=== PATIENT | male | born 1970 | race African-American/Black ===

== ENCOUNTER 2023-12-14 06:25 | Day surgery (SDC) | payer OTHER, SELFPAY ==
[2023-11-30 07:01] VITALS: BMI 31.0
[2023-11-30 09:04] LABS: Hematocrit 51.1 % (39.0-52.0); Hemoglobin 16.9 g/dL (13.0-18.0); Mean Corp Hgb Conc. 33.1 g/dL (33.0-37.0); Mean Corpuscular Hgb 27.7 pg (27.0-31.0); Mean Corpuscular Volume 83.6 fL (80.0-94.0); Mean Platelet Volume 11.2 fL (7.4-10.4); Platelet Count 156 10^3/uL (130-400); Red Blood Cell Count 6.11 10^6/uL (4.70-6.10); Red Cell Dist. Width 14.3 % (11.5-14.5); White Blood Cell Count 3.6 10^3/uL (4.8-10.8)
[2023-11-30 09:09] LABS: Urine Albumin Negative (Neg - Trace); Urine Bilirubin Negative (Negative); Urine Character Clear (Clear); Urine Color Yellow; Urine Glucose Negative (Negative); Urine Ketone Negative (Negative); Urine Leukocyte Negative (Negative); Urine Nitrite Negative (Negative); Urine Occult Blood Negative (Negative); Urine Urobilinogen Negative (Neg - 1+)
[2023-11-30 09:14] LABS: Blood Urea Nitrogen 25 mg/dl (9-20); Carbon Dioxide 28 mmol/L (22-30); Chloride 104 mmol/L (98-107); Estimated Creatinine Clearance 71 ml/min; Glucose 113 mg/dl (70-99); Potassium 4.5 mmol/L (3.5-5.1); Sodium 137 mmol/L (135-145); eGFR > 60.00
[2023-11-30 09:15] LABS: INR 1.04; PT 13.4 Sec (11.4-14.6)
[2023-11-30 09:16] LABS: APTT 36.6 Sec (23.4-35.0)
[2023-12-14] VITALS (7 sets, daily range): BP systolic 126–145; BP diastolic 86–97
[2023-12-14] MEDS: NORMOSOL-R 1000 IV (10:28)
--- NOTE | 2024-01-09 15:53 | HP.FOC2 ---
Focused History & Physical
Chief Complaint
HPI:
Chief Complaint: Paratesticular tumor
HPI / Indication for Planned Procedure: 53M with persistent R paratesticular mass s/p serial exam and ultrasound
Relevant Past Medical History: Negative
Relevant Social History: Negative
Relevant Family History: Negative
Relevant Past Surgical History: Negative
Review of Systems
Review of Pertinent Systems: All Systems Negative
Medication
See Medication form for detailed medications: No
Medication List (including Herbals & OTC):
Fadogia Agrestis Supplement 1 cap PO BID Supplement 12/15/23
Brentonkat Ali Supplement 1 cap PO BID Supplement 12/15/23
acetaminophen 325 mg tablet (Tylenol) 650 mg PO ONCE PRN mild pain 12/15/23
ibuprofen 200 mg tablet (Advil) 400 mg PO ONCE PRN mild pain 12/15/23
sulfamethoxazole 800 mg-trimethoprim 160 mg tablet (Bactrim DS) 1 tab PO BID 7 days #14 tabs 12/16/23
Medications Reviewed: Yes
Allergies and Reactions
Patient has Allergies: No
Noted Allergies and Reactions:
Allergy/AdvReac Type Severity Reaction Status Date / Time
No Known Allergies Allergy Verified 12/15/23 01:42
Pertinent Physical Exam
All Other Systems: Negative
Head/Neck: Normal
Lungs: Normal
Heart: Normal
Abdomen: Normal
Extremities: Normal
Neurological: Normal
Diagnosis / Assessment
53M with small R paratesticular tumor
- OR for inguinal exploration, biopsy of paratesticular mass
Plan / Procedure
- OR for inguinal exploration, biopsy of paratesticular mass
Anesthesia/Sedation to be done by Anesthesia Provider: Yes
== END 2023-12-14 16:15 | disposition home or self-care (01) ==
LOC: SDS 06:25
PROVIDERS: ATTENDING PHYSICIAN Urology
DX: N50.89 Other specified disorders of the male genital organs (principal)
CPT/HCPCS: 54512; 88304; 88332; 36415; 80048; 81003; 85027; 85610; 85730; 88331; 93005

== ENCOUNTER 2023-12-15 06:02 | Day surgery (SDC) | payer OTHER, SELFPAY ==
[2023-12-15] VITALS (28 sets, daily range): BP systolic 100–157; BP diastolic 61–108; BMI 31.4
--- NOTE | 2023-12-15 02:23 | ED.GENMED ---
History of Present Illness
<KAYLAH Crystal - Last Filed: 12/15/23 02:39>
General
Chief Complaint: Post Operative Problem(s)
Source: patient
Exam Limitations: none
Time Seen by Provider: 12/15/23 02:06
Nursing documentation reviewed up to this point in time: agreed with
Travel History
Have you had any contact with someone who has COVID-19?: No
Do you have any symptoms of coronavirus? Fever > 100 degrees, chills, cough, shortness of breath, sore throat, loss of taste or smell, muscle aches, or headache?: No
History of Present Illness
History of Present Illness:
53 y/o M presents to ED post excision of right paratesticular tumor with R inguinal exploration complaining of testicular/penile swelling and right sided testicular pain. Patient had surgery at 1300 yesterday. Patient reports swelling began
immediately the surgery. He says he has not looked at where the swelling started as he was wearing a jock strap post surgery. However, he states he could 'feel it swelling up'. Patient states he also has had constant right sided pain that started 1
hour ago. He states the pain is 7/10 currently. He denies dysuria, drainage or bleeding.
If applicable-neuro sx onset
Onset of symptoms known: Yes
Date of onset of symptoms: 12/14/23
Time of onset of symptoms: 13:00
Review of Systems
<KAYLAH Crystal - Last Filed: 12/15/23 02:39>
Review of Systems
Allergies reviewed?: Yes
All Other Systems: ROS reviewed and negative except as documented in HPI and ROS
Constitutional: Reports no symptoms
EENT: Reports no symptoms
Respiratory: Reports no symptoms
Cardiac: Reports no symptoms
ABD/GI: Reports no symptoms
: Reports other (testicular swelling/penile swelling)
Musculoskeletal: Reports no symptoms
Skin: Reports no symptoms
Neurological: Reports no symptoms
Endocrine: Reports no symptoms
Hematologic/Lymphatic: Reports no symptoms
Psychiatric: Reports no symptoms
Phy Exam
<KAYLAH Crystal - Last Filed: 12/15/23 02:39>
General Physical Exam
General Presentation: well appearing and mild distress
General age: appears stated age
General Skin: warm and dry
General Habitus: normal
General Mental: alert
General Hydration: appears well hydrated
Cardiovascular Exam
Cardiovascular Exam: regular rate/rhythm, no edema, no gallop, no murmur and normal peripheral pulses
Pulmonary Exam
Pulmonary Exam: lungs clear, no respiratory distress, no rales, no crackles and no rhonchi
Neurological Exam
Neurological Exam: alert and oriented x3
Skin Exam
Skin Exam: normal color, warm/dry and no rash
Psychiatric Exam
Psychiatric Exam: normal mood/affect
Course
<KAYLAH Crystal - Last Filed: 12/15/23 02:39>
Orders/Labs/Results
Orders:
Orders
12/15/23 02:05
US Scrotum Urgent
Comment:
Reason For Exam: post operative swelling
12/15/23 02:52
Urinalysis Reflex To Culture Urgent
HYDROmorphone [Dilaudid] 0.5 mg IV NOW STA
Ondansetron Injectable [Zofran] 4 mg IV NOW STA
12/15/23 02:59
Complete Blood Count/With Diff Urgent
Comprehensive Metabolic Panel Urgent
12/15/23 03:27
ECG [Electrocardiogram (*1)] Urgent
Reason for Study: Syncope
12/15/23 03:28
EKG- Treatment ONCE
Bedside Glucose Monitoring-ONCE As Directed
Abnormal Lab Results
12/15/23
02:59
MCV 79.2 L fL
(80.0-94.0)
Abs Immat Gran (auto) 0.1 H 10^3/uL
(0-0.05)
Absolute Neuts (auto) 6.7 H 10^3/uL
(1.4-6.5)
Absolute Lymphs (auto) 0.9 L 10^3/uL
(1.2-3.4)
Immature Gran % 0.6 H %
(0-0.5)
Neutrophils % 82.3 H %
(42.2-75.2)
Lymphocytes % 11.3 L %
(20.5-51.1)
Potassium 5.2 H mmol/L
(3.5-5.1)
BUN 32 H mg/dl
(9-20)
Glucose 201 H mg/dl
(70-99)
Alkaline Phosphatase 37 L U/L
(38-126)
12/15/23 02:59
12/15/23 02:59
Vital Signs
Initial and Last Documented VS:
Initial Vital Signs
Temp Pulse Resp BP Pulse Ox
99.6 F 138 24 157/95 100
12/15/23 01:43 12/15/23 01:43 12/15/23 01:43 12/15/23 01:43 12/15/23 01:43
Last Documented Vital Signs
Temp Pulse Resp BP Pulse Ox
99.6 F 66 17 112/68 95
12/15/23 01:43 12/15/23 03:33 12/15/23 03:33 12/15/23 03:36 12/15/23 03:36
Bandarlt;Timmy Wong, DO - Last Filed: 12/15/23 03:58>
Orders/Labs/Results
Orders:
Orders
12/15/23 02:05
US Scrotum Urgent
Comment:
Reason For Exam: post operative swelling
12/15/23 02:52
Urinalysis Reflex To Culture Urgent
HYDROmorphone [Dilaudid] 0.5 mg IV NOW STA
Ondansetron Injectable [Zofran] 4 mg IV NOW STA
12/15/23 02:59
Complete Blood Count/With Diff Urgent
Comprehensive Metabolic Panel Urgent
12/15/23 03:27
ECG [Electrocardiogram (*1)] Urgent
Reason for Study: Syncope
12/15/23 03:28
EKG- Treatment ONCE
Bedside Glucose Monitoring-ONCE As Directed
Abnormal Lab Results
12/15/23
02:59
MCV 79.2 L fL
(80.0-94.0)
Abs Immat Gran (auto) 0.1 H 10^3/uL
(0-0.05)
Absolute Neuts (auto) 6.7 H 10^3/uL
(1.4-6.5)
Absolute Lymphs (auto) 0.9 L 10^3/uL
(1.2-3.4)
Immature Gran % 0.6 H %
(0-0.5)
Neutrophils % 82.3 H %
(42.2-75.2)
Lymphocytes % 11.3 L %
(20.5-51.1)
Potassium 5.2 H mmol/L
(3.5-5.1)
BUN 32 H mg/dl
(9-20)
Glucose 201 H mg/dl
(70-99)
Alkaline Phosphatase 37 L U/L
(38-126)
12/15/23 02:59
12/15/23 02:59
Vital Signs
Initial and Last Documented VS:
Initial Vital Signs
Temp Pulse Resp BP Pulse Ox
99.6 F 138 24 157/95 100
12/15/23 01:43 12/15/23 01:43 12/15/23 01:43 12/15/23 01:43 12/15/23 01:43
Last Documented Vital Signs
Temp Pulse Resp BP Pulse Ox
99.6 F 66 17 112/68 95
12/15/23 01:43 12/15/23 03:33 12/15/23 03:33 12/15/23 03:36 12/15/23 03:36
<KAYLAH Crystal - Last Filed: 12/15/23 02:39>
MDM/Problems Addressed
Differential Diagnosis Includes:
Post operative swelling/pain
Testicular torsion
Epididymitis
Testicular hematoma post surgery
MDM/Problems Addressed:
53 y/o M presents to ED post right testicular mass excision complaining of right sided pain and testicular swelling post surgery. Patient symptoms may be due to post operative causes that can normally cause pain and swelling. Hematoma considered as
complication of surgery. Hematoma can cause pain, swelling and redness. Will order US to rule out testicular torsion or epididymitis. Patient does not have fevers or chills, no concerns for sepsis.
<KAYLAH Crystal - Last Filed: 12/15/23 02:39>
*Critical Care Note
Total Time (30-74mins, 75-104mins- exclusive of procedures): Not Applicable
ED Attending Note
<KAYLAH Crystal - Last Filed: 12/15/23 02:39>
-
Portions of this chart may have been created with voice recognition software.� Occasional wrong word or��sound alike� substitutions may have occurred due to the inherent limitations of voice recognition software.
<Timmy Wong DO - Last Filed: 12/15/23 03:58>
ED Attending Note
Patient seen and examined by attending physician: Yes
I performed the substantive portion of visit, reviewed & personally made and approve the management plan that is documented in note by myself or JIM.: Yes
ED Attending Note:
Pleasant 53-year-old male presents with testicular swelling that presented after neurologic surgery yesterday. Patient had right inguinal exploration with excision of right paratesticular tumor. Patient tolerated procedure well without any
immediate adverse effects but then noticed some swelling when he got home so he came into the emergency department. Reports some pain, denies any other symptoms. Patient was seen in conjunction with the PA student. I have reviewed and agree with
the history and treatment plan presented. On my independent physical exam, patient is awake, alert, and oriented x3, minimal acute distress. Scrotum is enlarged and taut.
Discharge Plan
Departure
Patient Disposition: Admit
Date of Disposition: 12/15/23
Time of Disposition: 03:57
Admit to: Telemetry
Presentation/result/management discussed w/ accepting MD/DO: Dr Barnett
Condition: Fair
Discharge Problem:
Scrotal hematoma
Instructions: Postoperative Pain (DC), Bleeding After Surgery
Prescriptions:
No Action
No Current Medications
0
Referrals:
Cosme Garnett PA-C [Family Provider] -
Interventions
Interventions:
*General Assessment Last Done: 12/15/23 01:43
*Neglect/Abuse Screening Last Done: 12/15/23 01:43
ED- Fall Risk Assessment Last Done: 12/15/23 01:43
*ED COVID-19 Vaccine History Last Done: 12/15/23 01:43
ED-Skin Assessment Last Done: 12/15/23 02:05
[2023-12-15] MEDS: DILAUDID 0.5 MG IV (02:59)
[2023-12-15] MEDS: ZOFRAN 4 MG IV (02:59)
[2023-12-15 03:24] LABS: % Basophils 0.1 % (0-2); % Immature Granulocytes 0.6 % (0-0.5); % Lymphocytes 11.3 % (20.5-51.1); % Monocytes 5.7 % (1.7-9.3); % Neutrophils 82.3 % (42.2-75.2); Absolute Immature Granulocytes 0.1 10^3/uL (0-0.05); Absolute Lymphocytes 0.9 10^3/uL (1.2-3.4); Absolute Monocytes 0.5 10^3/uL (0.1-0.6); Absolute Neutrophils 6.7 10^3/uL (1.4-6.5); Hematocrit 42.3 % (39.0-52.0); Hemoglobin 14.7 g/dL (13.0-18.0); Mean Corp Hgb Conc. 34.8 g/dL (33.0-37.0); Mean Corpuscular Hgb 27.5 pg (27.0-31.0); Mean Corpuscular Volume 79.2 fL (80.0-94.0); Mean Platelet Volume 9.9 fL (7.4-10.4); Nucleated Red Blood Cells % 0 % (-); Platelet Count 198 10^3/uL (130-400); Red Blood Cell Count 5.34 10^6/uL (4.70-6.10); Red Cell Dist. Width 13.9 % (11.5-14.5); White Blood Cell Count 8.1 10^3/uL (4.8-10.8)
[2023-12-15 03:41] LABS: ALT (SGPT) 25 U/L (0-50); AST (SGOT) 24 U/L (17-59); Albumin 3.5 g/dl (3.5-5.0); Alkaline Phosphatase 37 U/L (38-126); Blood Urea Nitrogen 32 mg/dl (9-20); Calcium 9.3 mg/dl (8.4-10.2); Carbon Dioxide 27 mmol/L (22-30); Chloride 100 mmol/L (98-107); Estimated Creatinine Clearance 86 ml/min; Glucose 201 mg/dl (70-99); Potassium 5.2 mmol/L (3.5-5.1); Sodium 135 mmol/L (135-145); Total Bilirubin 0.5 mg/dl (0.2-1.3); Total Protein 6.5 g/dl (6.3-8.2); eGFR > 60.00
[2023-12-15 05:30] LABS: Urine Albumin Negative (Neg - Trace); Urine Bilirubin Negative (Negative); Urine Character Clear (Clear); Urine Color Yellow; Urine Glucose 3+ (Negative); Urine Ketone Trace (Negative); Urine Leukocyte Negative (Negative); Urine Nitrite Negative (Negative); Urine Occult Blood Negative (Negative); Urine Urobilinogen Negative (Neg - 1+)
--- NOTE | 2023-12-15 05:40 | HPS.HSE ---
Family Physician
-
Family Physician: Cosme Garnett
Chief Complaint
-
Testicular swelling
History of Present Illness
This is a very pleasant 53 year old male who underwent excision of a paratesticular tumor with inguinal exploration and biopsy yesterday. He came in to ED due to increasing swelling and pain. No associated symptoms including bleeding, urinary
discharge or drainage. During my interview he appeared hesitant answering questions but he had received a dose of IV dilaudid and also Zofran IV for nausea..He denied pain to me.
Medical History
Past Medical History
Past Medical History: Reports Other (L thumb carpometacarpal joint arthritis, elevated PSA levels)
Past Surgical History: Reports Urological (excision and biopsy of right testicular mass with inguinal exploration 12/14/23)
Social History
Tobacco: Non-smoker
Alcohol: Occasional
Drug: None
Personal: Single
Employment: Employed
Family History
Family History: Cancer (father)
Allergies / Home Medications
Allergies reflects when Allergies were last updated in [employer].
Home Medications with original date entered in [employer]
Allergy/Medication List:
Allergies
Allergy/AdvReac Type Severity Reaction Status Date / Time
No Known Allergies Allergy Verified 12/15/23 01:42
Home Medications
No Meds [No Current Medications] 12/15/23
Review of Systems
-
Constitutional: Reports No Symptoms
EENT: Reports No Symptoms
Respiratory: Reports No Symptoms
Cardiac: Reports No Symptoms
Abdomen/GI: Reports No Symptoms
: Reports Other (testicular pain)
Musculoskeletal: Reports No Symptoms
Skin: Reports No Symptoms
Neurological: Reports No Symptoms
Endocrine: Reports No Symptoms
Hematologic/Lymphatic: Reports No Symptoms
Psych: Reports No Symptoms
Physical Exam
Vital Signs
Vital Signs
Temp Pulse Resp BP Pulse Ox
99.6 F 70 15 103/78 99
12/15/23 01:43 12/15/23 05:30 12/15/23 05:30 12/15/23 05:00 12/15/23 05:30
Physical Exam
General: Well Developed, Well Nourished and No Apparent Distress
HEENT: NormoCephalic
Breast: Deferred by me
GI: Soft, Non Tender and Non Distended
Musculoskeletal: No Clubbing and No Cyanosis
Skin: Dry and Rash
Psych: Calm
Laboratory Results
-
12/15/23 02:59
12/15/23 02:59
Laboratory Results
Total Bilirubin 0.5 mg/dl (0.2-1.3) 12/15/23 02:59
AST 24 U/L (17-59) 12/15/23 02:59
ALT 25 U/L (0-50) 12/15/23 02:59
Alkaline Phosphatase 37 U/L (38-126) L 12/15/23 02:59
Data Reviewed
-
Diagnostic Radiology: Report Reviewed by me
Lab Data: Labs Reviewed by me
Impression/Plan
-
IMPRESSION: scrotal hematoma
PLAN: 53 year old male with post operative scrotal hematoma
*Pain: Tylenol. Keep narcotics to minimum if possible. May need bladder scan with hx of urinary retention pre-surgery.
*Syncope: Apparent vagal response earlier in evening. EKG done.
*DVT prophylaxis: SCDs
*Disposition: FC. Urology service. Observation.
--- NOTE | 2023-12-15 06:10 | HP.FOC2 ---
Focused History & Physical
Chief Complaint
HPI:
Chief Complaint: post-op scrotal hematoma
HPI / Indication for Planned Procedure:
patient underwent scrotal exploration yesterday for paratestis mass -- benign finding with pathological analysis; discharged; noted progressive scrotal swelling prompting return to ED
Relevant Past Medical History: Negative
Relevant Social History: Negative
Relevant Family History: Negative
Relevant Past Surgical History: Positive for (right scrotal exploration 12/14/23)
Review of Systems
Review of Pertinent Systems: All Systems Negative
Medication
See Medication form for detailed medications: Yes
Medication List (including Herbals & OTC):
No Meds [No Current Medications] 12/15/23
Medications Reviewed: Yes
Allergies and Reactions
Patient has Allergies: No
Noted Allergies and Reactions:
Allergy/AdvReac Type Severity Reaction Status Date / Time
No Known Allergies Allergy Verified 12/15/23 01:42
Pertinent Physical Exam
All Other Systems: Negative
Head/Neck: Normal
Lungs: Normal
Heart: Normal
Abdomen: Normal
Extremities: Normal
Neurological: Normal
Other: right inguinal incsion [glued] appears healthy; scrotum is grossly enlarged
Diagnosis / Assessment
post-op scrotal hematoma
Plan / Procedure
will d/w Dr Lepe
Anesthesia/Sedation to be done by Anesthesia Provider: Yes
--- NOTE | 2023-12-15 09:09 | W.PN.UPDATE ---
Update Note
Progress Note Update
Patient examined and I recommended scrotal exploration, clot evacuation
NPO
Scheduled for OR this afternoon around 3:30
--- NOTE | 2023-12-15 13:08 | CM ---
CM met with patient in room. Patient confirmed demographics. Patient denies history of VN, SNF or DME. Patient lives with his brother. Patient is active with his PCP. Patient uses [facility] in [place].
PLAN: home no needs.
--- NOTE | 2023-12-15 17:28 | W.IMMPOSTOP ---
Surgical Immed Post Op Note
-
Primary Surgeon: Randifer
Assisting Surgeon: none
Pre-op Diagnosis: Scrotal hematoma
Post-op Diagnosis: same
Procedure Performed: Scrotal exploration, clot evacuation, fulguration
Anesthesia Type: general
Specimen / Cultures: none
Estimated Blood Loss: 200cc
Complications: none
Operative Findings: large amount of clot evacuated
biopsy site oversewn
darryl in place
--- NOTE | 2023-12-15 22:33 | PTCARENOTE ---
Pt admitted to 2S. VSS. AAOx3 minimal c/o pain. NSR in the monitor. Dizzy when standing up. +2 scrotal edema. Lungs and WNL. Abd round and obese. Pt was informed about having a BM. Dressing change and it was soaked with blood. Pt appears
comfortable in bed and call hazel within reach.
[2023-12-16 03:30] VITALS: BP 127/71
[2023-12-16 06:09] LABS: Hematocrit 32.8 % (39.0-52.0); Hemoglobin 11.1 g/dL (13.0-18.0); Mean Corp Hgb Conc. 33.8 g/dL (33.0-37.0); Mean Corpuscular Hgb 27.3 pg (27.0-31.0); Mean Corpuscular Volume 80.8 fL (80.0-94.0); Mean Platelet Volume 10.7 fL (7.4-10.4); Platelet Count 175 10^3/uL (130-400); Red Blood Cell Count 4.06 10^6/uL (4.70-6.10); Red Cell Dist. Width 14.1 % (11.5-14.5); White Blood Cell Count 7.6 10^3/uL (4.8-10.8)
[2023-12-16 06:40] LABS: Blood Urea Nitrogen 22 mg/dl (9-20); Carbon Dioxide 27 mmol/L (22-30); Chloride 104 mmol/L (98-107); Estimated Creatinine Clearance 86 ml/min; Glucose 148 mg/dl (70-99); Potassium 4.4 mmol/L (3.5-5.1); Sodium 134 mmol/L (135-145); eGFR > 60.00
[2023-12-16 07:05] VITALS: BP 141/69
--- NOTE | 2023-12-16 10:51 | W.PN.URO.CBU ---
Today's Communication / Plan
-
Discharge
Assessment / Plan
-
Discharge home with scrotal support, dressing changes PRN
Follow up Wednesday to remove drain
Bactrim DS for 7 days infection prophylaxis
NSAID for swelling
ICE PRN
Diagnosis
-
Date of Service: December 16, 2023
-
Patient Diagnosis:
Scrotal hematoma
Post Op Day: post op s/p scrotal
Objective
-
Vital Signs
Temp Pulse Resp BP Pulse Ox
98.1 F 83 18 141/69 99
12/16/23 07:05 12/16/23 07:05 12/16/23 07:05 12/16/23 07:05 12/16/23 09:00
Intake and Output
12/15/23 12/16/23 12/17/23
06:59 06:59 06:59
Intake Total 1300 / 1300
Output Total 1150 / 1150
Balance 150 / 150
Intake:
Oral fluids 1000 / 1000
IV fluids (Total) 300 / 300
Normosal 300 / 300
Output:
Urine, Voided 1150 / 1150
Laboratory Results
12/16/23 04:26
12/16/23 04:26
Physical Exam
-
General - well developed, well nourished, no acute distress
Chest - clear
Abdomen - soft
Scrotal support in place, expected mild bleeding from drain
Skin - warm & dry with no rash
Neuro - AOx3, no motor deficits
--- NOTE | 2023-12-16 11:08 | CM ---
Patient has been medically cleared for discharge to home with no additional skilled services. Patient does have a drain in place. He has been educated on proper care by MD and RN. Patient has arranged for transportation home.
--- NOTE | 2023-12-16 11:59 | PTCARENOTE ---
pt educated on wound care and Oxly drain management. pt able to change scrotal dressing and new scrotal support.
discharged to home.
[2023-12-17 14:33] LABS: Glucose - Point of Care 213 mg/dl (70-99)
== END 2023-12-16 12:02 | disposition home or self-care (01) ==
LOC: SDS 06:02
PROVIDERS: Registered Nurse; EMERGENCY PHYSICIAN Student in an Organized Health Care Education/Training Program; FAMILY PHYSICIAN Physician Assistant Medical
DX: S30.22XA Contusion of scrotum and testes, initial encounter (principal); X58.XXXA Exposure to other specified factors, initial encounter; Z98.890 Other specified postprocedural states
CPT/HCPCS: 54700; 76870; 80048; 80053; 81003; 82962; 85025; 85027; 93005; 93976; 96374; 96375; 99285

== ENCOUNTER 2025-04-30 06:25 | Day surgery (SDC) | payer OTHER, SELFPAY | END 2025-04-30 11:08 | disposition home or self-care (01) | LOC: GI 06:25 | PROVIDERS: ATTENDING PHYSICIAN Student in an Organized Health Care Education/Training Program | DX: Z12.11 Encounter for screening for malignant neoplasm of colon (principal); K57.30 Diverticulosis of large intestine without perforation or abscess without bleeding; K62.1 Rectal polyp; K63.5 Polyp of colon; Z86.0101 Personal history of adenomatous and serrated colon polyps | CPT/HCPCS: 45385; 45380; 88305 ==

== ENCOUNTER → 2025-06-06 15:20 | Outpatient (REF) | payer OTHER, SELFPAY | LOC: HWRAD 15:20 | PROVIDERS: ATTENDING PHYSICIAN Physician Assistant Medical | DX: R22.2 Localized swelling, mass and lump, trunk (principal) | CPT/HCPCS: 76604 ==

== ENCOUNTER 2025-08-16 06:05 | Day surgery (SDC) | payer OTHER, SELFPAY ==
[2025-08-16 06:10] VITALS: BP 138/94
[2025-08-16 06:25] VITALS: BMI 28.9
[2025-08-16 06:36] VITALS: BMI 28.9
[2025-08-16] MEDS: TYLENOL 1000 MG PO (06:37)
[2025-08-16] MEDS: NORMOSOL-R/PLASMALYTE-A 1000 IV (06:40)
[2025-08-16 06:44] LABS: Glucose - Point of Care 127 mg/dl (70-99)
--- NOTE | 2025-08-16 07:00 | W.SUR.PREOP ---
Pre-Operative Surgical Note
-
I have examined this patient prior to the performance of the scheduled procedure.
The patient's condition is unchanged from the time of the current History and
Physical and the patient is able to undergo the scheduled procedure.
--- NOTE | 2025-08-16 07:00 | HP.FOC2 ---
Focused History & Physical
Chief Complaint
HPI:
Chief Complaint: Right chest wall mass
HPI / Indication for Planned Procedure: This is a 54-year-old male who presents with a symptomatic right chest wall mass, will plan for an open excision under MAC.
Relevant Past Medical History: Negative
Relevant Social History: Negative
Relevant Family History: Negative
Relevant Past Surgical History: Negative
Review of Systems
Review of Pertinent Systems: All Systems Negative
Medication
See Medication form for detailed medications: Yes
Medication List (including Herbals & OTC):
Veggies 1 dose PO DAILY 08/13/25
creatine monohydrate 1 gram chewable tablet 5 g PO DAILY 08/13/25
metformin 500 mg tablet 500 mg PO BIDWMEAL 08/13/25
omega 0-vsb-alf-fish oil 1,000 mg (120 mg-180 mg) capsule (Fish Oil) 1 cap PO BID 08/13/25
psyllium seed (sugar) oral powder 2 tbsp PO DAILY 08/13/25
saw palm 160 mg-vit E 100 unit-selen 100 kcn-ckwj-oshqwv-pygeum tablet (Prostate Health) 3 tab PO BID 08/13/25
tadalafil 5 mg tablet (Cialis) 5 mg PO DAILY 08/13/25
Medications Reviewed: Yes
Allergies and Reactions
Patient has Allergies: No
Noted Allergies and Reactions:
Allergy/AdvReac Type Severity Reaction Status Date / Time
No Known Allergies Allergy Verified 08/16/25 06:33
Pertinent Physical Exam
All Other Systems: Negative
Head/Neck: Normal
Diagnosis / Assessment
This is a 54-year-old male who presents with a symptomatic right chest wall mass, will plan for an open excision under MAC.
Plan / Procedure
This is a 54-year-old male who presents with a symptomatic right chest wall mass, will plan for an open excision under MAC.
Anesthesia/Sedation to be done by Anesthesia Provider: Yes
--- NOTE | 2025-08-16 08:09 | W.IMMPOSTOP ---
Surgical Immed Post Op Note
-
Primary Surgeon: Roly Peralta MD
Assisting Surgeon: None
Pre-op Diagnosis: Right chest wall lipoma
Post-op Diagnosis: Same
Procedure Performed: Excision of a right chest wall lipoma
Anesthesia Type: General
Specimen / Cultures: Right chest wall lipoma
Estimated Blood Loss: 1 cc
Complications: None
Operative Findings: Encapsulated subcutaneous right chest wall lipoma. Measuring 6 x 4 x 1.5 cm. Excised completely and wound closed in layers.
--- NOTE | 2025-08-16 08:10 | OR.RPT ---
Operative Report
Operative Report
Patient Name: David Peña Jr.
: 1970
Date of Operation: 08/16/2025
Preoperative Diagnosis: Right chest wall lipoma
Postoperative Diagnosis: Same
Procedure(s):
Excision of lipoma, right chest wall
Surgeon(s):
Dr. Peralta
Building Code Inspector(s):
Allyson Banks NP
Anesthesia: MAC
Estimated Blood Loss: 1 cc
Urine Output: None
Drains/Lines/Implants: None
Specimens:
1. Lipoma
Indication for surgery:
This is a 54-year-old male who presents with a symptomatic right chest wall lump that he is known about for over a year. After evaluation in the office they were diagnosed with a lipoma. After discussion of risk benefits and alternatives they
elected and were consented for surgery.
Operative Findings: Encapsulated subcutaneous right chest wall lipoma. Measuring 6 x 4 x 1.5 cm. Excised completely and wound closed in layers.
Details of the operation:
The patient was brought to the operating room a placed in the supine position with a bump under his right side. After appropriate sedation by anesthesia, the area of the right chest wall was prepped and draped in the usual fashion. A linear
incision over natural skin line was made over the mass and carried down through the subcutaneous tissue. The Lipoma was identified and found to be encapsulated. The lipoma was freed circumferentially taking care not to come across any
interdigitating extensions that it had. The specimen which measured roughly 6 x 4 x 1.5 cm was passed off the field. The cavity was irrigated and hemostasis was achieved. The space was closed with interrupted 3-0 Vicryl sutures. The dermis was
then approximated using interrupted 3-0 Vicryl sutures followed by a running 4-0 monocryl, followed by dermabond. All counts were correct at the end of procedure. The patient was then transferred to the PACU for recovery.
I was the attending physician and performed the procedure with assistance of the GARDE MANGER above. The assistance of Allyson Banks NP was required due to the complexity of the procedure. During the procedure Davina assisted with retraction, resection,
and closure of the wound. I was present for all portions of the case, excluding skin closure.
Roly Peralta MD
[2025-08-16 08:12] VITALS: BP 121/68
[2025-08-16 08:15] VITALS: BP 113/72
[2025-08-16 08:30] VITALS: BP 119/73
[2025-08-16 08:45] VITALS: BP 111/79
== END 2025-08-16 09:15 | disposition home or self-care (01) ==
LOC: SDS 06:05
PROVIDERS: ATTENDING PHYSICIAN Surgery
DX: D17.1 Benign lipomatous neoplasm of skin and subcutaneous tissue of trunk (principal)
CPT/HCPCS: 21552; 82962; 88304

== ENCOUNTER → 2025-09-26 12:46 | Outpatient (REF) | payer OTHER, SELFPAY | LOC: RAD 12:46 | PROVIDERS: ATTENDING PHYSICIAN Radiology Diagnostic Radiology; FAMILY PHYSICIAN Physician Assistant Medical; REFERRING PHYSICIAN Urology | DX: S05.50XA Penetrating wound with foreign body of unspecified eyeball, initial encounter (principal) | CPT/HCPCS: 70030 ==

== ENCOUNTER → 2025-10-01 17:44 | Outpatient (REF) | payer OTHER, SELFPAY | LOC: MRI 3T 17:44 | PROVIDERS: ATTENDING PHYSICIAN Urology; FAMILY PHYSICIAN Physician Assistant Medical | DX: R97.20 Elevated prostate specific antigen [PSA] (principal) | CPT/HCPCS: 72197; A9575 ==